=== PATIENT | female | born 1995 | race Caucasian/White ===

== ENCOUNTER 2023-10-16 01:40 | Inpatient (IN) | payer OTHER, SELFPAY ==
[2023-10-16] VITALS (46 sets, daily range): BP systolic 102–137; BP diastolic 60–81; PULSE 76–103; RESP 16–18; TEMP 36.6–37.3; O2SAT 98–100; BMI 27.4
[2023-10-16] MEDS: Lactated Ringers 1,000 ML 200 ML IV (01:45)
[2023-10-16 02:16] LABS: Absolute Lymphocyte Count 3.45 X10^3/uL (0.83-4.51); Absolute Neutrophil Count 8.1 X10^3/uL (2.0-7.7); Basophil# 0.05 X10^3/uL; Basophil% 0.4 % (0-1); Eosinophil# 0.22 X10^3/uL; Eosinophils% 1.7 % (0-5); Hematocrit 36.5 % (37-47); Hemoglobin 12.5 g/dL (12.0-15.0); Lymphocyte # 3.45 X10^3/ul (0.83-4.51); Lymphocyte % 26.8 % (19-41); Mean Corp Hgb Conc 34.2 g/dL (32-36); Mean Corpuscular Hgb 32.3 pg (27.0-32.0); Mean Corpuscular Volume 94.3 fL (81-99); Monocyte# 0.86 X10^3/uL; Monocyte% 6.7 % (0-10); NRBC Flagged by Analyzer 0 % (0-5); Neutrophil # 8.14 X10^3/uL (2.7-7.7); Neutrophil % 63.2 % (47-70); Platelet Count 214 K/mm3 (150-450); RBC Distribution Width CV 12.6 % (11.6-14.6); RBC Distribution Width SD 43.4 fl (35.1-43.9); Red Blood Count 3.87 M/mm3 (4.2-5.4); White Blood Count 12.9 K/mm3 (4.4-11.0)
[2023-10-16] MEDS: Oxytocin 15 Units/NS 250ml 15 UNITS/250 ML IV.SOLN 334 UNITS IV (02:38)
[2023-10-16] MEDS: Lidocaine 1% (20 ml mdv) 20 ML Vial INFILT (02:45)
[2023-10-16] MEDS: Ketorolac 30 MG/ML Syringe IV (02:48)
[2023-10-16] MEDS: 0.9% Saline Lock 10 ML Syringe IV ×2 (02:48→06:28)
[2023-10-16 03:00] LABS: Syphilis Antibodies Non-reactive
--- NOTE | 2023-10-16 03:00 | PCM.HP.OB ---
HPI - General General Date of Admission: 10/16/23 HPI Narrative ADONIS SLOAN, is a 28 F who presents with contractions. Maternal Data Information Final PATRICK: 10/15/23 Gestational age: 40&1 PFSH PFSH Allergy/AdvReac Type Severity Reaction Status Date / Time prednisone Allergy Other Verified 10/16/23 02:05 Surgical History H/O wisdom tooth extraction Hx of tonsillectomy Vital Signs Vital Signs Vital Signs: 10/16/23 01:29 10/16/23 01:29 10/16/23 01:30 Pulse Rate 81 81 Blood Pressure 137/80 H BP Systolic 137 BP Diastolic 80 Pulse Ox 10/16/23 01:30 Pulse Rate Blood Pressure BP Systolic BP Diastolic Pulse Ox 98 Labs Labs Labs: Blood Type O POSITIVE Antibody Screen NEGATIVE Hct 36.5 % (37-47) L Hgb 12.5 g/dL (12.0-15.0) Syphilis Total Ab Non-reactive Assessment & Plan (1) 40 weeks gestation of : COMMENT: @ 40&1 PLAN: Plan Patient admitted to L&D. She proceeded to have a precipitous . GBS negative.
--- NOTE | 2023-10-16 03:03 | EX.PCM.OBRPT ---
Maternal Data Information Final PATRICK: 10/15/23 Gestational age: 40&1 Vaginal Delivery Maternal Presentation Maternal Presentation: Active Labor Operative Information Date of Procedure: 10/16/23 Pre-Operative Diagnosis: Labor Post-Operative Diagnosis: Labor Surgery / Procedure Performed: Spontaneous Vaginal Delivery Type of Anesthesia: Local with 2% Lidocaine Estimated Blood Loss: 350ml Findings Description of Procedure: Amniotomy performed. Patient then prepped & draped when C/C/+1. She pushed well to deliver the head. head gently guided to allow delivery of anterior and posterior shoulders. No excess traction placed on head. Body delivered and 3VC clamped & cut in delayed fashion. Placenta delivered with gentle traction and good uterine tone obtained. 3x4cm hematoma right, posterior vagina that was stable in size. Presentation: FIDELIA Amniotic Membrane Rupture Type: Artificial Amniotic Fluid Description: Clear Placental Delivery Description: Expressed Placenta Disposition: [facility] Specimen(s) Removed: Placenta Cord Vessel Description: 3 Vessels Cord Entanglement: None Infant A Gender: Male (Dmitry) (1 minute): 8 (5 minute): 9 Delayed Cord Clamping: Yes Post Vaginal Delivery Medications Given After Delivery: IV Pitocin Episiotomy Description: None Laceration: 1st degree (right vaginal - repaired with 3-0 vicryl) Complication Complications: None
[2023-10-16] MEDS: Oxytocin 15 Units/NS 250ml 15 UNITS/250 ML IV.SOLN 83 UNITS IV (03:30)
[2023-10-16] MEDS: Ibuprofen 600 MG Tablet PO ×3 (04:22→20:24)
[2023-10-16] MEDS: Senna/Docusate Sodium 1 Tablet PO (12:50)
[2023-10-17 00:06] VITALS: BP 101/63; PULSE 72; RESP 14; TEMP 36.9; O2SAT 98
[2023-10-17 04:21] VITALS: BP 94/60; PULSE 89; RESP 16; TEMP 36.6; O2SAT 97
--- NOTE | 2023-10-17 07:36 | PCM.PN.OB ---
Subjective Subjective Doing well per patient and nursing staff. Ambulating and taking PO without difficulty. Voiding and passing flatus. Pain controlled. , services for assistance. Denies headache, visual changes, chest pain, shortness of breath, leg pain or increased bleeding. Lochia normal. Objective Data Objective Data Vital Signs: Vital Signs Temp Pulse Resp BP Pulse Ox O2 Del Method 97.9 F 89 16 94/60 97 Room Air 10/17/23 04:21 10/17/23 04:21 10/17/23 04:21 10/17/23 04:21 10/17/23 04:21 10/17/23 04:21 Oxygen Delivery Method Room Air Weight: 170 lb 3.2 oz Body Mass Index (BMI) 27.4 Intake & Output: Intake and Output for Last 24 Hours 10/15/23 10/16/23 10/17/23 23:59 23:59 23:59 Intake Total 826.03 / 826.03 Output Total 1450 / 1450 Balance -623.97 / -623.97 Lab / Micro Data 10/16/23 01:45 ROS Constitutional Constitutional: Reports systems reviewed and no addt'l complaints, except as documented; Denies headache(s) Eyes Eyes: Denies acute decrease in peripheral vision, blurry vision or change in vision ENT HEENT: Reports systems reviewed and no addt'l complaints, except as documented Cardiovascular Cardiovascular: Denies chest pain or dizziness Respiratory/Chest Respiratory/Chest: Denies cough, dyspnea, dyspnea on exertion, shortness of breath at rest or shortness of breath with exertion Gastrointestinal Gastrointestinal: Denies abdominal pain, diarrhea, nausea or vomiting Genitourinary Genitourinary: Denies abdominal discomfort Musculoskeletal Musculoskeletal: Denies limited range of motion Integumentary Integumentary: Reports systems reviewed and no addt'l complaints, except as documented Neurologic Neurologic: Reports systems reviewed and no addt'l complaints, except as documented Psychiatric Psychiatric: Reports systems reviewed and no addt'l complaints, except as documented Endocrine Endocrinology: Reports systems reviewed and no addt'l complaints, except as documented Hematologic/Lymphatic Hematologic/Lymphatic: Reports systems reviewed and no addt'l complaints, except as documented Allergic/Immunologic Allergic/Immunologic: Reports systems reviewed and no addt'l complaints, except as documented Physical Exam Const alert and oriented x3 General Appearance: cooperative Orientation / Consciousness: awake, oriented to person, oriented to place and oriented to time Exam Limitations: no limitations HEENT normocephalic Head and Scalp: normal to inspection, normocephalic and atraumatic Face and Sinus: normal facial exam Eyes General Eye: normal appearance of both eyes Neck full ROM Chest Chest: symmetrical chest wall rise Resp normal respiratory effort and normal air movement Auscultation: clear to auscultation bilaterally Cardio regular rate, regular rhythm, S1 normal heart sound, S2 normal heart sound, no murmurs, no rub, no gallops and no clicks GI normal to inspection, nondistended, normoactive bowel sounds and non-tender appearance of the vagina normal Bladder / Kidney Exam: no CVA tenderness Back/Spine normal ROM Extremity normal to inspection and full ROM Skin no rashes or lesions noted Neuro oriented x3, CN's II-XII intact bilaterally and moves all extremities Sensorium / Orientation: awake, alert and oriented to person Motor Exam: clonus absent Deep Tendon Reflexes: Rt Patellar (L4): 2+ and Lt Patellar (L4): 2+ Assessment & Plan (1) Vaginal delivery: PLAN: Plan PPD#1 Pain management Vitals stable D/C home today per patient request Follow up in 2 weeks and 6 weeks PP
[2023-10-17] MEDS: Senna/Docusate Sodium 1 Tablet PO (08:54)
[2023-10-17] MEDS: Ibuprofen 600 MG Tablet PO (08:54)
[2023-10-17 08:58] VITALS: BP 99/64; PULSE 88; RESP 16; TEMP 36.8; O2SAT 97
--- NOTE | 2023-10-17 08:59 | DCINST_ITS ---
Discharge Instructions Diet Discharge Diet: No restrictions Activity May resume sexual activity in: 6 weeks Weight Bearing Status: Full weight bearing Dressing / Incision Call your doctor if you observe: Fever of 101 or Higher, Inability to urinate, Inability to have a bowel movement, Using more than 1 pad per hour, Shortness of breath, Dizziness, Fainting spells, Chest pain, Increased palpitations (i rregular heartbeat), Calf discomfort and Uncontrolled pain Follow Up Care Test Results: Test results from this visit will be discussed in further detail at your follow- up appointment, if applicable. Discharge Plan Admission Admit Date/Time: 10/16/23 01:40 Primary Reason for Your Visit: Vaginal Attending Provider: Francy Cervantes Discharge Orders/Prescriptions Prescriptions: New acetaminophen 500 mg Tablet 1,000 mg PO Q6H PRN PRN (Reason: Pain 1-10 Or Fever) Qty: 0 0RF ibuprofen 600 mg Tablet 600 mg PO Q6H PRN PRN (Reason: Pain Score 1-10) Qty: 0 0RF Disposition Disposition (needs filled in before D/C Order can be placed): Home, Self Care
[2023-10-17 14:46] VITALS: BP 115/75; PULSE 85; RESP 16; TEMP 37; O2SAT 98
--- NOTE | 2023-11-15 09:50 | NURSING ---
edited /para for accuracy
== END 2023-10-17 15:25 | disposition home or self-care (01) | DRG 806 ==
LOC: WPOUT 01:41 → WP 02:35
PROVIDERS: Admitting Provider Obstetrics & Gynecology; Visit Provider Obstetrics & Gynecology
DX: O62.3 Precipitate labor (principal); Z37.0 Single live birth; O71.7 Obstetric hematoma of pelvis; O70.0 First degree perineal laceration during delivery; Z3A.40 40 weeks gestation of pregnancy
CPT/HCPCS: 59025; 59050; 85025; 86780; 86850; 86900; 86901; 99221; J7120; A4216; G0378